=== PATIENT | female | born 1955 | race Asian ===

== ENCOUNTER 2016-05-03 12:51 | Outpatient (CLI) | payer MEDICARE | END 2016-05-03 12:52 | disposition home or self-care (01) | DX: E11.9 Type 2 diabetes mellitus without complications (principal); M17.11 Unilateral primary osteoarthritis, right knee ==

== ENCOUNTER 2016-06-29 06:06 | Inpatient (IN) | payer MEDICARE ==
[2016-06-29] MEDS ORDERED: ceFAZolin 2 GM/50 ML 50 ML IV ONE (06:29)
[2016-06-29] MEDS ORDERED: LACTATED RINGERS 1,000 ML IV ONE (06:49)
[2016-06-29] MEDS ORDERED: KETOROLAC 30 MG/ML VIAL IM ONE (07:42)
[2016-06-29] MEDS ORDERED: ROPIVACAINE 0.5% PF 20 ML AMPULE SUBQ ONE (07:43)
[2016-06-29] MEDS ORDERED: MORPHINE PF 5 MG/10 ML AMP SUBQ ONE (07:44)
[2016-06-29] MEDS ORDERED: MORPHINE PF 5 MG/10 ML AMP EP ONE (08:49)
[2016-06-29] MEDS ORDERED: PHENYLEPHRINE 10 MG/ML VIAL IV ONE (08:49)
[2016-06-29] MEDS ORDERED: MIDAZOLAM 2 MG/2 ML VIAL IVP ONE (08:49)
[2016-06-29] MEDS ORDERED: METOCLOPRAMIDE 10 MG/2 ML VIAL IVP ONE (08:49)
[2016-06-29] MEDS ORDERED: ACETAMINOPHEN 1,000 MG/100 ML VIAL IV ONE (08:49)
[2016-06-29] MEDS ORDERED: METOPROLOL 5 MG/5 ML VIAL IVP ONE (08:49)
[2016-06-29] MEDS ORDERED: TRANEXAMIC ACID 1,000 MG/10 ML VIAL IV ONE (08:49)
[2016-06-29] MEDS ORDERED: LIDOCAINE-MPF 2% 5 ML VIAL IM ONE (08:49)
[2016-06-29] MEDS ORDERED: KETOROLAC 30 MG/ML VIAL IVP ONE (08:49)
[2016-06-29] MEDS ORDERED: PROPOFOL 200 MG/20 ML VIAL IVP ONE (08:49)
[2016-06-29] MEDS ORDERED: ONDANSETRON 4 MG/2 ML VIAL IVP ONE (08:49)
[2016-06-29] MEDS ORDERED: BISACODYL 10 MG SUPP PR PRN (10:05)
[2016-06-29] MEDS ORDERED: ONDANSETRON 4 MG/2 ML VIAL IVP PRN (10:05)
[2016-06-29] MEDS ORDERED: DEXTROSE 50% ABBOJECT 25 GM/50 ML SYRINGE IVP PRN (10:05)
[2016-06-29] MEDS ORDERED: DEXTROSE 5% 1,000 ML IV PRN (10:05)
[2016-06-29] MEDS ORDERED: DEXTROSE GEL 37.5 GM TUBE PO PRN (10:05)
[2016-06-29] MEDS ORDERED: GLUCAGON 1 MG/ML VIAL SUBQ PRN (10:05)
[2016-06-29] MEDS ORDERED: DOCUSATE SODIUM 100 MG CAPSULE PO PRN (10:05)
[2016-06-29] MEDS ORDERED: SODIUM CHLORIDE FLUSH 0.9% 10 ML SYRINGE IVP PRN (10:05)
[2016-06-29] MEDS ORDERED: PROCHLORPERAZINE 10 MG/2 ML VIAL IVP PRN (10:05)
[2016-06-29] MEDS ORDERED: HYDROmorphone 1 MG/ML SYRINGE ONE (10:48)
[2016-06-29] MEDS: SODIUM CHLORIDE 0.45% 1,000 ML IV SCH ×2 (12:50→22:04)
[2016-06-29] MEDS: SODIUM CHLORIDE FLUSH 0.9% 10 ML SYRINGE IVP SCH ×2 (12:50→21:57)
[2016-06-29] MEDS: ACETAMINOPHEN 325 MG TABLET PO PRN ×2 (13:54→21:48)
[2016-06-29] MEDS ORDERED: metFORMIN 500 MG TABLET PO SCH (17:00)
[2016-06-29] MEDS: ceFAZolin 2 GM/50 ML 50 ML IV SCH (18:02)
[2016-06-29] MEDS: ATORVASTATIN 10 MG TABLET PO SCH (22:02)
[2016-06-29] MEDS: METOPROLOL TARTRATE 50 MG TABLET PO SCH (22:02)
[2016-06-29] MEDS: FLUOCINONIDE 0.05% CREAM 15 GM TUBE TOP SCH (23:25)
[2016-06-30] MEDS: ACETAMINOPHEN 325 MG TABLET PO PRN ×2 (02:50→08:08)
[2016-06-30] MEDS: ceFAZolin 2 GM/50 ML 50 ML IV SCH (02:50)
[2016-06-30] MEDS: SODIUM CHLORIDE FLUSH 0.9% 10 ML SYRINGE IVP SCH ×3 (05:22→20:02)
[2016-06-30] MEDS: ASPIRIN 325 MG TABLET PO SCH (08:08)
[2016-06-30] MEDS: METOPROLOL TARTRATE 50 MG TABLET PO SCH ×2 (08:08→20:26)
[2016-06-30] MEDS: NIFEdipine ER 30 MG TABLET PO SCH (08:09)
[2016-06-30] MEDS: SODIUM CHLORIDE 0.45% 1,000 ML IV SCH ×2 (08:12→18:42)
[2016-06-30] MEDS: HYDROcod/ACETAM 7.5 MG/325 MG TABLET PO PRN ×3 (11:27→20:52)
[2016-06-30] MEDS: metFORMIN 500 MG TABLET PO SCH ×2 (11:48→20:22)
[2016-06-30] MEDS: methIMAzole 5 MG TABLET PO SCH (11:48)
[2016-06-30] MEDS: FLUOCINONIDE 0.05% CREAM 15 GM TUBE TOP SCH ×2 (11:48→20:27)
[2016-06-30] MEDS: ISONIAZID 100 MG TABLET PO SCH (11:53)
[2016-06-30] MEDS: ATORVASTATIN 10 MG TABLET PO SCH (20:26)
[2016-07-01] MEDS: HYDROmorphone 1 MG/ML SYRINGE IVP PRN (00:28)
[2016-07-01] MEDS: HYDROcod/ACETAM 7.5 MG/325 MG TABLET PO PRN ×4 (03:54→21:12)
[2016-07-01] MEDS: SODIUM CHLORIDE 0.45% 1,000 ML IV SCH ×3 (04:28→22:23)
[2016-07-01] MEDS: SODIUM CHLORIDE FLUSH 0.9% 10 ML SYRINGE IVP SCH ×4 (06:09→21:15)
[2016-07-01] MEDS: metFORMIN 500 MG TABLET PO SCH ×2 (08:54→21:14)
[2016-07-01] MEDS: methIMAzole 5 MG TABLET PO SCH (08:55)
[2016-07-01] MEDS: ASPIRIN 325 MG TABLET PO SCH (08:55)
[2016-07-01] MEDS: ISONIAZID 100 MG TABLET PO SCH (08:56)
[2016-07-01] MEDS: METOPROLOL TARTRATE 50 MG TABLET PO SCH ×2 (08:56→21:06)
[2016-07-01] MEDS: NIFEdipine ER 30 MG TABLET PO SCH (08:57)
[2016-07-01] MEDS: POLYETHYLENE GLYCOL 3350 17 GM PACKET PO SCH (13:07)
[2016-07-01] MEDS: SENNA 8.6 MG TABLET PO SCH (13:07)
[2016-07-01] MEDS: FLUOCINONIDE 0.05% CREAM 15 GM TUBE TOP SCH ×2 (13:09→21:15)
[2016-07-01] MEDS ORDERED: POLYETHYLENE GLYCOL 3350 17 GM PACKET PO SCH (17:00)
[2016-07-01] MEDS: ACETAMINOPHEN 325 MG TABLET PO PRN (17:40)
[2016-07-01] MEDS: ATORVASTATIN 10 MG TABLET PO SCH (21:06)
[2016-07-02] MEDS: HYDROcod/ACETAM 7.5 MG/325 MG TABLET PO PRN ×2 (01:16→07:54)
[2016-07-02] MEDS: HYDROmorphone 1 MG/ML SYRINGE IVP PRN (05:38)
[2016-07-02] MEDS: SODIUM CHLORIDE FLUSH 0.9% 10 ML SYRINGE IVP SCH (05:39)
[2016-07-02] MEDS: METOPROLOL TARTRATE 50 MG TABLET PO SCH (07:47)
[2016-07-02] MEDS: ASPIRIN 325 MG TABLET PO SCH (07:48)
[2016-07-02] MEDS: ISONIAZID 100 MG TABLET PO SCH (07:48)
[2016-07-02] MEDS: SENNA 8.6 MG TABLET PO SCH (07:48)
[2016-07-02] MEDS: methIMAzole 5 MG TABLET PO SCH (07:48)
[2016-07-02] MEDS: NIFEdipine ER 30 MG TABLET PO SCH (07:48)
[2016-07-02] MEDS: POLYETHYLENE GLYCOL 3350 17 GM PACKET PO SCH (07:49)
[2016-07-02] MEDS: metFORMIN 500 MG TABLET PO SCH (07:49)
[2016-07-02] MEDS: SODIUM CHLORIDE 0.45% 1,000 ML IV SCH (07:50)
[2016-07-02] MEDS ORDERED: DOCUSATE SODIUM 250 MG CAPSULE PO ONE (08:30)
[2016-07-02] MEDS: FLUOCINONIDE 0.05% CREAM 15 GM TUBE TOP SCH (08:59)
== END 2016-07-02 09:25 | disposition home or self-care (01) | DRG 470 ==
PROC: 0SRC0J9 Replacement of Right Knee Joint with Synthetic Substitute, Cemented, Open Approach (ICD-10-PCS; principal; 2016-06-29 07:30)
DX: M17.11 Unilateral primary osteoarthritis, right knee (principal); I10 Essential (primary) hypertension; E11.9 Type 2 diabetes mellitus without complications; E05.00 Thyrotoxicosis with diffuse goiter without thyrotoxic crisis or storm; E78.00 Pure hypercholesterolemia, unspecified; L40.9 Psoriasis, unspecified; F17.210 Nicotine dependence, cigarettes, uncomplicated; Z96.652 Presence of left artificial knee joint; Z85.3 Personal history of malignant neoplasm of breast; Z87.440 Personal history of urinary (tract) infections

== ENCOUNTER 2016-09-20 11:48 | Outpatient (CLI) | payer MEDICARE ==
--- NOTE | 2016-09-21 16:49 | Mammography Report ---
DIGITAL SCREENING MAMMOGRAM: 09/20/2016 CLINICAL INDICATION: A 60-year-old with personal history of benign right breast biopsy for screening . COMPARISON: 09/2015, 09/2014, 07/2013, 07/2012, 07/2011, 07/2010, 07/2009, 10/2008, 04/2008, 03/2008 . TECHNIQUE: Routine CC and MLO projections were obtained of the breasts. The breasts again demonstrate heterogeneously dense fibroglandular parenchyma bilaterally. Coarse an d punctate, typically benign calcifications are present. Post-biopsy changes in the right breast are stable. No suspicious masses, clustered microcalcifications, or regions of architectural distortion are identified. IMPRESSION: BENIGN FINDINGS. RECOMMENDATION: ROUTINE ANNUAL SCREENING UNLESS OTHERWISE CLINICALLY INDICATED. BIRADS CATEGORY: 2, BENIGN FINDINGS. STANDARD QUALIFYING STATEMENTS 1. This examination was reviewed with the aid of Computed-Aided Detection (CAD). 2. A negative or benign imaging report should not delay biopsy if clinically suspicious findings are present. Consider surgical consultation if warranted. More than 5% of cancers are not identified b y imaging. 3. Dense breasts may obscure an underlying neoplasm. JOB #: [id number] EXT JOB #:[id number]
== END 2016-09-20 11:49 | disposition home or self-care (01) ==
LOC: DI.N 11:48
PROVIDERS: ATTEND Physician Assistant Medical
DX: Z12.31 Encounter for screening mammogram for malignant neoplasm of breast (principal)
CPT/HCPCS: 77067

== ENCOUNTER 2017-04-27 15:13 | Emergency (ER) | payer MEDICARE ==
[2017-04-27] MEDS ORDERED: LABETALOL 20 MG/4 ML SYRINGE IVP STA (15:36)
--- NOTE | 2017-04-27 15:39 | ED Physician Documentation ---
History of Present Illness - Stated complaint Stated Complaint: HIGH BP - Chief complaint Chief Complaint: General - History obtained from History obtained from: Patient, Family () - History of Present Illness Timing: Last night (She has a history of hypertension which is usually well controlled for which she takes metoprolol. Starting last night her whole body feels heavy and she is having some anxiety and choking sensation as well as throbbing in her head and her blood pressure has been uncontrolled.) Review of Systems Ten Systems: 10 systems reviewed and negative Constitutional: denies: Fever, Chills Throat: denies: Dental pain / toothache, Sore throat Cardiac: reports: Chest pain / pressure. denies: Palpitations, Pedal edema, Calf pain Respiratory: reports: Dyspnea. 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 - Present Medications Home Medications: Ambulatory Orders Medication Instructions Recorded Confirmed Aspirin [Adult Low Dose Aspirin EC] 81 mg PO DAILY 07/14/15 04/27/17 Metoprolol Tartrate 50 mg PO BID 07/14/15 04/27/17 Simvastatin 40 mg PO QPM 07/14/15 04/27/17 methIMAzole [Methimazole] 5 mg PO DAILY 07/14/15 04/27/17 Bisacodyl Supp [Dulcolax Supp] 10 mg ID Q12H PRN #7 supp 07/02/16 04/27/17 HYDROcodone/ACET 7.5/325 [[place] 1 tab PO Q4H PRN #30 tablet 07/02/16 04/27/17 7.5/325] Lisinopril [Prinivil] 10 mg PO DAILY #30 tablet 04/27/17 Simvastatin 40 mg PO DAILY 04/27/17 04/27/17 metFORMIN [Glucophage] 1,000 mg PO BID 04/27/17 04/27/17 - Allergies Allergies/Adverse Reactions: Allergies Allergy/AdvReac Type Severity Reaction Status Date / Time No Known Drug Allergies Allergy Verified 07/14/15 12:30 - Social History Does the pt smoke?: No Smoking Status: Never smoker PD ED PE NORMAL - Vitals Vital signs reviewed: Yes - General General: Alert and oriented X 3 (She is very anxious) - HEENT HEENT: PERRL, EOMI - Neck Neck: Supple, no meningeal sign, No bony TTP - Cardiac Cardiac: RRR, No murmur - Respiratory Respiratory: No respiratory distress, Clear bilaterally - Abdomen Abdomen: Soft, Non tender - Derm Derm: Normal color, Warm and dry, No rash - Extremities Extremities: No edema, No calf tenderness / cord - Neuro Neuro: Alert and oriented X 3, Normal speech Results - Vitals Vitals: Vital Signs - 24 hr 04/27/17 15:22 Heart Rate 105 H Respiratory 22 Rate Blood Pressure 226/99 H O2 Saturation 98 Oxygen O2 Source Room air - EKG (time done) 1525 Rate: Rate (enter#) (96) Rhythm: NSR [place]: Normal Intervals: Normal ID QRS: Normal Ischemia: Normal ST segments Computer interpretation: Agree with computer - Labs Labs: Laboratory Tests 04/27/17 04/27/17 04/27/17 15:43 15:43 15:43 WBC 10.8 RBC 5.43 H Hgb 14.6 Hct 44.4 MCV 81.9 MCH 26.9 L MCHC 32.8 RDW 14.0 Plt Count 318 MPV 7.9 Neut # 6.2 Lymph # 3.6 H [place] # 0.7 Eos # 0.2 Baso # 0.1 Absolute Nucleated RBC 0.00 Nucleated RBC % 0.0 Sodium 134 L Potassium 3.7 Chloride 94 L Carbon Dioxide 24 Anion Gap 16.0 H BUN 12 Creatinine 0.9 Estimated GFR (MDRD) 64 L Glucose 183 H Calcium 10.1 Total Bilirubin 0.3 AST 37 ALT 49 Alkaline Phosphatase 69 Troponin I < 0.04 Total Protein 8.6 H Albumin 5.1 Globulin 3.5 Albumin/Globulin Ratio 1.5 Lipase 71 H - Rads (name of study) CT Head Radiology: EMP read contemporaneously (NAD) PD MEDICAL DECISION MAKING - ED course ED course: She presents with headache and really pretty significant hypertension, but she is also very panicky. She was reassured and treated with IV labetalol, blood pressure came down to about 160/80 and the remainder of her workup was negative. Departure - Departure Disposition: 01 Home, Self Care Clinical Impression: Hypertension Qualifiers: Hypertension type: essential hypertension Qualified Code(s): I10 - Essential ( primary) hypertension Headache Qualifiers: Headache type: tension-type Headache chronicity pattern: acute headache Intractability: not intractable Qualified Code(s): G44.209 - Tension-type headache, unspecified, not intractable Condition: Good Record reviewed to determine appropriate education?: Yes Instructions: ED Headache Tension Prescriptions: Lisinopril [Prinivil] 10 mg PO DAILY #30 tablet Comments: Return if worse, follow-up with your doctor Tuesday or Tuesday for blood pressure check and post emergency department check.
[2017-04-27 15:49] LABS: BASOPHILS # (AUTO) 0.1 10^3/uL (0.0-0.1); BASOPHILS % (AUTO) 0.9 %; EOSINOPHILS # (AUTO) 0.2 10^3/uL (0.0-0.7); HGB - HEMOGLOBIN 14.6 g/dL (12.0-16.0); LYMPHOCYTES # (AUTO) 3.6 10^3/uL (1.5-3.5); LYMPHOCYTES % (AUTO) 33.7 %; MEAN CORPUSCULAR HEMOGLOBIN 26.9 pg (27.0-31.0); MEAN CORPUSCULAR HGB CONC 32.8 g/dL (32.0-36.0); MEAN CORPUSCULAR VOLUME 81.9 fL (81.0-99.0); MEAN PLATELET VOLUME 7.9 fL (7.9-10.8); MONOCYTES # (AUTO) 0.7 10^3/uL (0.0-1.0); MONOCYTES % (AUTO) 6.1 %; NEUTROPHILS # (AUTO) 6.2 10^3/uL (1.5-6.6); NEUTROPHILS % (AUTO) 57.3 %; PLT - PLATELET COUNT 318 10^3/uL (130-450); RED BLOOD COUNT 5.43 10^6/uL (4.20-5.40); WHITE BLOOD COUNT 10.8 x10^3/uL (4.8-10.8)
[2017-04-27 15:59] LABS: ALBUMIN 5.1 g/dL (3.2-5.5); ALBUMIN/GLOBULIN RATIO 1.5 (1.0-2.2); BILIRUBIN,TOTAL 0.3 mg/dL (0.2-1.0); CALCIUM 10.1 mg/dL (8.5-10.3); CREATININE 0.9 mg/dL (0.4-1.0); TOTAL PROTEIN 8.6 g/dL (6.7-8.2)
--- NOTE | 2017-04-27 16:50 | CT Report ---
EXAM: CT HEAD EXAM DATE: 04/27/2017 04:28 PM. CLINICAL HISTORY: HEADACHE. COMPARISON: 10/09/2008. TECHNIQUE: Multiaxial CT images were obtained from the foramen magnum to the vertex. Reformats: Coron al. IV contrast: None. In accordance with CT protocol optimization, one or more of the following dose reduction techniques w ere utilized for this exam: automated exposure control, adjustment of mA and/or KV based on patient s ize, or use of iterative reconstructive technique. FINDINGS: Parenchyma: There is an old infarct with encephalomalacia in the left frontal parietal lobe. No midli ne shift or mass effect. Negative for intracranial hemorrhage. Extraaxial Spaces: Normal for age. No subdural or epidural collections identified. Ventricles: Normal in size and position. Sinuses and Orbits: Imaged paranasal sinuses, orbits, and mastoids show no significant abnormality. Bones: No acute fracture. There is an old right lamina papyracea defect. Other: None. IMPRESSION: 1. Negative for intracranial hemorrhage, mass effect or acute process. 2. 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 [facility] Referring Provider Line: [phone] SITE ID: [id number]
[2017-04-27 17:26] VITALS: BP 147/86
== END 2017-04-27 17:26 | disposition home or self-care (01) ==
LOC: ED 15:13
DX: I10 Essential (primary) hypertension (principal); G44.209 Tension-type headache, unspecified, not intractable; F41.0 Panic disorder [episodic paroxysmal anxiety]; E11.9 Type 2 diabetes mellitus without complications; Z79.84 Long term (current) use of oral hypoglycemic drugs; Z79.82 Long term (current) use of aspirin
CPT/HCPCS: 36415; 70450; 80053; 83690; 84484; 85025; 93005; 96374; 99283

== ENCOUNTER 2017-08-15 16:07 | Outpatient (CLI) | payer MEDICARE ==
--- NOTE | 2017-08-15 17:20 | Ultrasound Report ---
EXAM: RIGHT LOWER EXTREMITY VENOUS ULTRASOUND EXAM DATE: 08/15/2017 04:37 PM. CLINICAL HISTORY: Right LEG SWELLING. COMPARISON: None. TECHNIQUE: Real-time sonographic vascular imaging was performed by the perpetual inventory clerk through the lower extremity utilizing both color-flow and Doppler spectral analysis. Multiple jewelry sales representative static masoud ges were saved for review. FINDINGS: Common Femoral Vein (CFV): Normal. CFV-GSV Junction: Normal. Profunda Femoral Vein (PFV): Normal. Femoral Vein (FV) Prox: Normal. Femoral Vein (FV) Mid: Normal. Femoral Vein (FV) Dist: Normal. Popliteal Vein: Normal. Posterior Tibial Veins: Normal. Peroneal Veins: Normal. IMPRESSION: No evidence for deep venous thrombosis. [facility] Referring Provider Line: [phone] SITE ID: [id number]
== END 2017-08-15 16:08 | disposition home or self-care (01) ==
LOC: DI 16:07
PROVIDERS: ATTEND Orthopaedic Surgery
DX: R60.0 Localized edema (principal)

== ENCOUNTER 2017-09-23 15:49 | Outpatient (CLI) | payer MEDICARE ==
--- NOTE | 2017-09-26 15:49 | Mammography Report ---
Procedure Date: 09/23/2017 Accession Number: [id number] / [id number] Procedure: MGN - Screening Mammo Dig Bilat CPT Code: FULL RESULT: EXAM: Screening Mammo Dig Bilat DATE: 09/23/2017 4:15 PM CLINICAL HISTORY: Personal history of benign right breast biopsy for routine screening TECHNIQUE: Bilateral CC and MLO views were obtained. COMPARISON: 09/20/2016, 09/29/2015, 09/09/2014, 07/30/2013, 07/17/2012, 07/12/11 FINDINGS: The breast tissue is heterogeneously dense. Postsurgical changes right breast are stable. No suspicious masses, clustered microcalcifications, or new regions of architectural distortion are identified. IMPRESSION: Negative examination RECOMMENDATION: Routine annual screening unless otherwise clinically indicated. BIRADS CATEGORY 1: Negative STANDARD QUALIFYING STATEMENTS: 1. This examination was reviewed with the aid of Computer-Aided Detection (CAD). 2. A negative or benign imaging report should not delay biopsy if clinically suspicious findings are present. Consider surgical consultation if warrented. More than 5% of cancers are not identified by imaging. 3. Dense breasts may obscure an underlying neoplasm.
== END 2017-09-23 15:50 | disposition home or self-care (01) ==
LOC: DI.N 15:49
PROVIDERS: ATTEND Physician Assistant Medical
DX: Z12.31 Encounter for screening mammogram for malignant neoplasm of breast (principal)
CPT/HCPCS: 77067

== ENCOUNTER 2018-12-27 09:49 | Outpatient (CLI) | payer MEDICARE ==
--- NOTE | 2018-12-27 13:27 | Mammography Report ---
Reason: SCREENING MAMMO Procedure Date: 12/27/2018 Accession Number: [id number] / [id number] Procedure: MGN - Screening Mammo Dig Bilat CPT Code: FULL RESULT: EXAM: Screening Mammo Dig Bilat DATE: 12/27/2018 10:24 AM CLINICAL HISTORY: Routine screening. Nulliparous patient. Prior benign right breast biopsy. TECHNIQUE: (B) - Bilateral CC and MLO views were obtained. COMPARISON: 09/23/2017, 09/20/2016, 09/29/2015 and 09/09/2014 PARENCHYMAL PATTERN: (VD) - The breasts demonstrate extremely dense parenchyma bilaterally, limiting the sensitivity of mammography. FINDINGS: No significant interval change on the left.. There are no suspicious masses, calcifications, or areas of distortion. On the right post biopsy architectural distortion is stable. There are 4 punctate new calcifications associated with faint increased soft tissue density in the 12:00 position 8 cm from the nipple. No dominant mass or other new finding. IMPRESSION: Incomplete examination right breast. BI-RADS category 0. Negative left breast. RECOMMENDATION: (ADDMAM) - Recommend additional mammographic views. Right breast magnification views. BI-RADS CATEGORY: (0) - Incomplete Examination - need additional evaluation. STANDARD QUALIFYING STATEMENTS: 1. This examination was not reviewed with the aid of Computer-Aided Detection (CAD). 2. A negative or benign imaging report should not preclude biopsy if clinically suspicious findings are present. 3. Dense breasts may obscure an underlying neoplasm. 4. This examination was reviewed without the aid of 3D breast imaging (tomosynthesis).
== END 2018-12-27 09:50 | disposition home or self-care (01) ==
LOC: DI.N 09:49
DX: Z12.31 Encounter for screening mammogram for malignant neoplasm of breast (principal)
CPT/HCPCS: 77067

== ENCOUNTER 2019-01-17 08:16 | Outpatient (CLI) | payer MEDICARE ==
--- NOTE | 2019-01-17 09:11 | Mammography Report ---
Reason: ABNORMAL MAMMOGAM Procedure Date: 01/17/2019 Accession Number: [id number] / [id number] Procedure: JOSHUA - Diag Special Views Dig RT CPT Code: FULL RESULT: EXAM: Diag Special Views Dig RT DATE: 01/17/2019 8:56 AM CLINICAL HISTORY: Recall from recent screening for right breast finding. No reported personal history of breast cancer. Prior benign right breast biopsy. Family history breast cancer in sister at age 62. TECHNIQUE: (R) - Right CC and ML views were obtained. COMPARISON: 12/27/2018 through 07/28/2009 PARENCHYMAL PATTERN: (D) - The breasts demonstrate heterogeneously dense fibroglandular parenchyma bilaterally. FINDINGS: Right breast: Additional images confirm a 5 mm grouping containing 3 punctate calcifications in the 6:00 breast 7.5 cm from the nipple representing finding recalled from screening. The described associated possible asymmetry effaces with compression and is a stable finding when compared to studies dating back to at least 2016. There are no suspicious masses or areas of distortion. IMPRESSION: Probably Benign. BI-RADS category 3. 3 punctate calcifications posterior 6:00 breast. RECOMMENDATION: (6MOS) - Recommend 6 month follow-up exam. BI-RADS CATEGORY: (3) - Probably Benign. STANDARD QUALIFYING STATEMENTS: 1. This examination was not reviewed with the aid of Computer-Aided Detection (CAD). 2. A negative or benign imaging report should not preclude biopsy if clinically suspicious findings are present. 3. Dense breasts may obscure an underlying neoplasm. 4. This examination was reviewed with the aid of 3D breast imaging (tomosynthesis).
== END 2019-01-17 08:17 | disposition home or self-care (01) ==
LOC: DI 08:16
PROVIDERS: ATTEND Physician Assistant Medical
DX: R92.1 Mammographic calcification found on diagnostic imaging of breast (principal); Z80.3 Family history of malignant neoplasm of breast

== ENCOUNTER 2019-05-07 08:00 | Outpatient (CLI) | payer MEDICARE ==
[2019-05-07 12:29] LABS: CALCIUM 9.7 mg/dL (8.5-10.3); CREATININE 0.9 mg/dL (0.4-1.0)
[2019-05-07 12:45] LABS: HEMOGLOBIN A1C 0.81 g/dL; HEMOGLOBIN A1C % 7.4 % (4.6-6.2)
== END 2019-05-07 23:59 | disposition home or self-care (01) ==
LOC: LAB.WCP 08:00
PROVIDERS: ATTEND Physician Assistant Medical
DX: E11.9 Type 2 diabetes mellitus without complications (principal)
CPT/HCPCS: 36415; 80048; 83036

== ENCOUNTER 2019-08-28 08:00 | Outpatient (CLI) | payer MEDICARE ==
[2019-08-28 14:11] LABS: ALBUMIN 4.7 g/dL (3.2-5.5); ALBUMIN/GLOBULIN RATIO 1.5 (1.0-2.2); ALKALINE PHOSPHATASE 58 IU/L (42-121); ALT ALANINE AMINOTRANSFERASE 34 IU/L (10-60); AST ASPARTATE AMINOTRANSFERASE 35 IU/L (10-42); BILIRUBIN,TOTAL 0.6 mg/dL (0.2-1.0); BUN - BLOOD UREA NITROGEN 16 mg/dL (6-20); CALCIUM 9.9 mg/dL (8.5-10.3); CARBON DIOXIDE - CO2 27 mmol/L (21-32); CHLORIDE 93 mmol/L (101-111); CHOLESTEROL 158 mg/dL; CREATININE 0.9 mg/dL (0.4-1.0); GLUCOSE 126 mg/dL (70-100); HDL CHOLESTEROL 53 mg/dL; LDL CHOLESTEROL,CALCULATED 83 mg/dL; LDL/HDL RATIO 1.6 (<4.4); SODIUM 132 mmol/L (135-145); TOTAL PROTEIN 7.9 g/dL (6.7-8.2); VLDL CHOLESTEROL 22 mg/dL
[2019-08-28 14:22] LABS: HB2 TOTAL 14.7 g/dL; HEMOGLOBIN A1C 0.72 g/dL; HEMOGLOBIN A1C % 6.6 % (4.6-6.2)
[2019-08-28 14:52] LABS: CREATININE,URINE 49.7 mg/dL; MICROALBUM/CREATININE RATIO,UR 2183.1 ug/mg (<30.0); MICROALBUMIN,URINE 108.5 mg/dL (0-300.0)
== END 2019-08-28 23:59 | disposition home or self-care (01) ==
LOC: LAB.WCP 08:00
PROVIDERS: ATTEND Physician Assistant Medical
DX: E11.9 Type 2 diabetes mellitus without complications (principal)
CPT/HCPCS: 36415; 80053; 80061; 82043; 82570; 83036; 83721

== ENCOUNTER 2020-01-10 10:30 | Outpatient (CLI) | payer MEDICARE ==
--- NOTE | 2020-01-14 08:30 | Mammography Report ---
BILATERAL DIGITAL DIAGNOSTIC MAMMOGRAM 3D/2D: 01/10/2020 CLINICAL: Patient returns for a 6 month follow up of microcalcifications in the right breast. Routine screening of Left Breast. Comparison is made to exams dated: 12/27/2018 mammogram, 09/23/2017 mammogram, 09/20/2016 mammogram, mammogram, 09/09/2014 mammogram, and 07/30/2013 mammogram - [facility]. The t issue of both breasts is heterogeneously dense. This may lower the sensitivity of mammography. There are grouped coarse, dystrophic, round calcifications in the right breast at 6 o'clock posterior depth. These have minimally increased in number. No other significant masses, calcifications, or other findings are seen in either breast. IMPRESSION: BENIGN The grouped calcifications in the right breast most likely are fibrocystic change or a degenerating f ibroadenoma and appear benign. There is no mammographic evidence of malignancy. Return to annual mammogram screening schedule is rec ommended. Findings and recommendations were conveyed to the patient at time of exam. This exam was interpreted at Station ID: [id number]. NOTE: For mammograms, a report in lay terms will be sent to the patient. Approximately 15% of breast malignancies will not be visualized mammographically. In the management of a palpable breast mass, a negative mammogram must not discourage biopsy of a clinically suspicious lesion. Electronically Signed By: Drea rodriguez/:01/10/2020 12:00:55 ACR BI-RADS Category 2: Benign Finding(s) 3342F PARENCHYMAL PATTERN: (D) - The breast(s) demonstrate(s) heterogeneously dense fibroglandular paranthony rodriguez. BI-RADS CATEGORY: (2) - 2 RECOMMENDATION: (ANNUAL) - Recommend routine annual screening mammography. [id number] return to screening LATERALITY: (B)
== END 2020-01-10 10:31 | disposition home or self-care (01) ==
LOC: DI 10:30
PROVIDERS: ATTEND Physician Assistant Medical
DX: R92.8 Other abnormal and inconclusive findings on diagnostic imaging of breast (principal)
CPT/HCPCS: 77066

== ENCOUNTER 2020-10-23 09:18 | Emergency (ER) | payer MEDICARE ==
[2020-10-23] MEDS ORDERED: SODIUM CHLORIDE 0.9% 1,000 ML IV STA (10:47)
--- NOTE | 2020-10-23 10:49 | ED Physician Documentation ---
PD HPI SYNCOPE - Stated complaint Stated Complaint: FALL, HEAF SHOULDER & KNEE INJURY - Chief complaint Chief Complaint: Trauma Hd/Nk - History obtained from History obtained from: Patient, Family - History of Present Illness Witnessed: Unwitnessed Timing - onset: Yesterday Duration: Seconds Preceding symptoms: Vision changes, Light headed Contributing factors: Just stood up Injury occurred: Fell, Head injury, Neck injury Similar symptoms before: Has not had sx before Recently seen: Not recently seen - Additional information Additional information: 64-year-old female was in her usual state of health yesterday and states that she over the past 2 weeks has had some lightheadedness. 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 She is injured her right face has a black and blue to the right eye she has some pain in her neck her right shoulder and her right knee where she has a prior total knee replacement. She has not vomited. She has history of diabetes and drinks a lot of water. Review of Systems Constitutional: denies: Fever Eyes: denies: Decreased vision Ears: denies: Ear pain Nose: denies: Congestion Throat: denies: Sore throat Cardiac: denies: Palpitations Respiratory: denies: Dyspnea, Cough GI: denies: Abdominal Pain, Nausea, Vomiting : denies: Dysuria, Frequency PD PAST MEDICAL HISTORY - Past Medical History Cardiovascular: Hypertension, High cholesterol Respiratory: None, Shortness of breath Endocrine/Autoimmune: Type 2 diabetes GI: Other : Other HEENT: None Psych: None Musculoskeletal: Osteoarthritis, Osteoporosis Derm: Eczema, Psoriasis - Past Surgical History 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 - Present Medications Home Medications: Ambulatory Orders Medication Instructions Recorded Confirmed Aspirin [Adult Low Dose Aspirin EC] 81 mg PO DAILY 07/14/15 04/27/17 Metoprolol Tartrate 50 mg PO BID 07/14/15 04/27/17 Simvastatin 40 mg PO QPM 07/14/15 04/27/17 methIMAzole [Methimazole] 5 mg PO DAILY 07/14/15 04/27/17 Bisacodyl Supp [Dulcolax Supp] 10 mg NC Q12H PRN #7 supp 07/02/16 04/27/17 HYDROcodone/ACET 7.5/325 [[place] 1 tab PO Q4H PRN #30 tablet 07/02/16 04/27/17 7.5/325] Simvastatin 40 mg PO DAILY 04/27/17 04/27/17 lisinopriL [Prinivil] 10 mg PO DAILY #30 tablet 04/27/17 metFORMIN [Glucophage] 1,000 mg PO BID 04/27/17 04/27/17 HYDROcod/ACETAM 5/325 [[place] 5/325] 1 - 2 tablet PO Q6H PRN #14 tablet 10/23/20 - Allergies Allergies/Adverse Reactions: Allergies Allergy/AdvReac Type Severity Reaction Status Date / Time No Known Drug Allergies Allergy Verified 07/14/15 12:30 - Social History Does the pt smoke?: No Smoking Status: Never smoker PD ED PE NORMAL - Vitals Vital signs reviewed: Yes (Hypertensive mild) - General General: Alert and oriented X 3, Well developed/nourished, Other (The patient is anxious she has a black and blue to the right eye and she seems to be answering questions appropriately.) - HEENT HEENT: PERRL, EOMI, Other (Ecchymosis to the right periorbital tissues without evidence of hyphema or injury to the eye itself.) - Neck Neck: Supple, no meningeal sign, Other (Midline bony tenderness to the mid cervical spine.) - Cardiac Cardiac: RRR, No murmur - Respiratory Respiratory: No respiratory distress, Clear bilaterally - Abdomen Abdomen: Normal bowel sounds, Soft, Non tender, Non distended, No organomegaly - Back Back: No CVA TTP, No spinal TTP - Derm Derm: Normal color, Warm and dry, No rash - Extremities Extremities: No deformity, No edema - Neuro Neuro: Alert and oriented X 3, electrical engineering technician 2-12 intact, No motor deficit, No sensory deficit, Normal speech Eye Opening: Spontaneous Motor: Obeys Commands Verbal: Oriented GCS Score: 15 - Psych Psych: Other (Mood is anxious) Results - Vitals Vitals: Vital Signs - 24 hr 10/23/20 10/23/20 10/23/20 09:26 11:16 13:00 Temperature 36.6 C 36.6 C 36.8 C Heart Rate 68 69 67 Respiratory 16 16 20 Rate Blood Pressure 139/77 H 189/83 H 189/99 H O2 Saturation 100 98 98 Oxygen O2 Source Room air - EKG (time done) 1213 Rate: Rate (enter#) (75) Rhythm: NSR Compare to prior EKG: Unchanged from prior EKG (SPT 04-27-2017 no sig change) Computer interpretation: Agree with computer - Labs Labs: Laboratory Tests 10/23/20 10/23/20 10/23/20 11:03 11:03 11:03 WBC 10.4 RBC 5.34 Hgb 14.6 Hct 42.2 MCV 79.0 L MCH 27.3 MCHC 34.6 RDW 11.9 L Plt Count 375 MPV 8.6 Neut # (Auto) 6.5 Lymph # (Auto) 2.8 [place] # (Auto) 0.8 Eos # (Auto) 0.2 Baso # (Auto) 0.1 Absolute Nucleated RBC 0.00 Nucleated RBC % 0.0 Sodium 124 L Potassium 4.0 Chloride 85 L Carbon Dioxide 24 Anion Gap 15.0 H BUN 11 Creatinine 0.8 Estimated GFR (MDRD) 72 L Glucose 73 Calcium 10.0 Total Bilirubin 0.7 AST 37 ALT 43 Alkaline Phosphatase 71 Troponin I High Sens 6.2 Total Protein 7.7 Albumin 4.5 Globulin 3.2 Albumin/Globulin Ratio 1.4 Lipase 82 H Urine Color Urine Clarity Urine pH Ur Specific [place] Urine Protein Urine Glucose (UA) Urine Ketones Urine Occult Blood Urine Nitrite Urine Bilirubin Urine Urobilinogen Ur Leukocyte Esterase Urine RBC Urine WBC Ur Squamous Epith Cells Urine Bacteria Ur Microscopic Review Urine Culture Comments 10/23/20 11:41 WBC RBC Hgb Hct MCV MCH MCHC RDW Plt Count MPV Neut # (Auto) Lymph # (Auto) [place] # (Auto) Eos # (Auto) Baso # (Auto) Absolute Nucleated RBC Nucleated RBC % Sodium Potassium Chloride Carbon Dioxide Anion Gap BUN Creatinine Estimated GFR (MDRD) Glucose Calcium Total Bilirubin AST ALT Alkaline Phosphatase Troponin I High Sens Total Protein Albumin Globulin Albumin/Globulin Ratio Lipase Urine Color YELLOW Urine Clarity CLEAR Urine pH 5.5 Ur Specific [place] 1.010 Urine Protein 100 H Urine Glucose (UA) 100 H Urine Ketones NEGATIVE Urine Occult Blood NEGATIVE Urine Nitrite NEGATIVE Urine Bilirubin NEGATIVE Urine Urobilinogen 0.2 (NORMAL) Ur Leukocyte Esterase NEGATIVE Urine RBC None Seen Urine WBC 0-3 Ur Squamous Epith Cells FEW Squamous Urine Bacteria Rare Ur Microscopic Review INDICATED Urine Culture Comments NOT INDICATED - Rads (name of study) shoulder Radiology: Prelim report reviewed (Impression: 1. Acromioclavicular and glenohumeral joint osteoarthritis. Findings suggestive of rotator cuff tearing. Further assessment with nonemergent outpatient follow-up shoulder MRI is recommended), EMP read indepedently, See rad report Right knee Radiology: Prelim report reviewed (Impression: No acute fracture. No osseous lesion. If symptoms and or clinical suspicion for pathology continue, further assessment with repeat plain films, or advanced imaging is recommended to further assist), EMP read indepedently, See rad report CT head Radiology: Prelim report reviewed (Impression: 1. No acute intracranial disease process chronic left frontal parietal infarct is stable compared to prior exam.), EMP read indepedently, See rad report CT cervical spine Radiology: Prelim report reviewed (Impression: No fracture. No acute osseous lesion. If there is continued clinical concern for pathology, then MRI should be considered for further evaluation.), EMP read indepedently, See rad report Procedures - IVC sono (time) 1045 Bedside IVC sono: IVC measures (cm) (0.79), Dehydration (est 2+ liter deficit) PD MEDICAL DECISION MAKING - ED course Complexity details: reviewed old records, reviewed results, re-evaluated patient, considered differential, d/w patient, d/w family ED course: 64-year-old diabetic female had a syncopal episode yesterday when bending over in the kitchen and she has fallen and hurt herself with a bruise to her right eye and injury to her right shoulder and right knee. She also has pain in her neck. She is found to be dehydrated on interrogation the inferior vena cava and IV hydration is begun. A line is started blood is obtained and CT scan of the head and neck is undertaken as well as x-rays of the shoulder and knee. The patient rates her pain as 3-4 out of 10. She is not nauseated. Departure - Departure Disposition: 01 Home, Self Care Clinical Impression: Dehydration, Hyponatremia Concussion Qualifiers: Encounter type: initial encounter Loss of consciousness presence/duration: without LOC Qualified Code(s): S06.0X0A - Concussion without loss of consciousness, initial encounter Contusion of face Qualifiers: Encounter type: initial encounter Qualified Code(s): S00.83XA - Contusion of other part of head, initial encounter Cervical strain, acute Qualifiers: Encounter type: initial encounter Qualified Code(s): S16.1XXA - Strain of muscle, fascia and tendon at neck level, initial encounter Sprain of right shoulder Qualifiers: Encounter type: initial encounter Shoulder sprain type: unspecified sprain Qualified Code(s): S43.401A - Unspecified sprain of right shoulder joint, initial encounter Right knee sprain Qualifiers: Encounter type: initial encounter Involved ligament of knee: unspecified ligament Qualified Code(s): S83.91XA - Sprain of unspecified site of right knee, initial encounter Condition: Stable Instructions: ED Dehydration, ED Head Injury Closed, ED Sprain Strain Neck, ED Sprain Shoulder Follow-Up: Kathy Contreras PA-C [Primary Care Provider] - Prescriptions: HYDROcod/ACETAM 5/325 [[place] 5/325] 1 - 2 tablet PO Q6H PRN #14 tablet PRN Reason: Pain Discharge Date/Time: 10/23/20 13:27
[2020-10-23 11:14] LABS: BASOPHILS # (AUTO) 0.1 10^3/uL (0.0-0.1); BASOPHILS % (AUTO) 0.6 %; EOSINOPHILS # (AUTO) 0.2 10^3/uL (0.0-0.7); EOSINOPHILS % (AUTO) 1.8 %; HCT - HEMATOCRIT 42.2 % (37.0-47.0); HGB - HEMOGLOBIN 14.6 g/dL (12.0-16.0); LYMPHOCYTES # (AUTO) 2.8 10^3/uL (1.5-3.5); LYMPHOCYTES % (AUTO) 27.2 %; MEAN CORPUSCULAR HEMOGLOBIN 27.3 pg (27.0-31.0); MEAN CORPUSCULAR HGB CONC 34.6 g/dL (32.0-36.0); MEAN PLATELET VOLUME 8.6 fL (7.9-10.8); MONOCYTES # (AUTO) 0.8 10^3/uL (0.0-1.0); MONOCYTES % (AUTO) 7.2 %; NEUTROPHILS # (AUTO) 6.5 10^3/uL (1.5-6.6); PLT - PLATELET COUNT 375 10^3/uL (130-450); RED BLOOD COUNT 5.34 10^6/uL (4.20-5.40); RED CELL DISTRIBUTION WIDTH 11.9 % (12.0-15.0); WHITE BLOOD COUNT 10.4 x10^3/uL (4.8-10.8)
[2020-10-23] MEDS ORDERED: HYDROmorphone 1 MG/ML CARPUJECT IVP STA (11:24)
[2020-10-23] MEDS ORDERED: ONDANSETRON 4 MG/2 ML VIAL IVP STA (11:24)
--- NOTE | 2020-10-23 11:30 | XRAY Report ---
PROCEDURE: Knee 3 View RT INDICATIONS: fall knee pain TECHNIQUE: 4 views of the right knee(s) were acquired. COMPARISON: None. FINDINGS: Bones: No fractures or dislocations. No suspicious bony lesions. Knee arthroplasty hardware is pre sent. Hardware appears intact. Soft tissues: No joint effusion. No suspicious soft tissue calcifications. IMPRESSION: No acute fracture. No osseous lesion. If symptoms and/or clinical suspicion for patholog y continue, further assessment with repeat plain films, or advanced imaging (e.g., CT or bone scan) i s recommended for further assessment. Reviewed by: Norma Bradshaw MD on 10/23/2020 11:28 AM PDT Approved by: Norma Bradshaw MD on 10/23/2020 11:28 AM PDT Station ID: [id number]
--- NOTE | 2020-10-23 11:31 | XRAY Report ---
PROCEDURE: Shoulder 3 View RT INDICATIONS: fall shoulder pain TECHNIQUE: 3 views of the shoulder were acquired. COMPARISON: None. FINDINGS: Bones: No fractures or dislocations. No suspicious bony lesions. Visualized ribs appear intact. P eriarticular osteophyte formation at the acromioclavicular and glenohumeral joints. Superior subluxat ion of the humeral head. Soft tissues: No suspicious soft tissue calcifications. IMPRESSION: 1. Acromioclavicular and glenohumeral joint osteoarthritis 2. Findings suggestive of rotator cuff tearing. Further assessment with nonemergent outpatient follow -up shoulder MRI is recommended. Reviewed by: Norma Bradshaw MD on 10/23/2020 11:29 AM PDT Approved by: Norma Bradshaw MD on 10/23/2020 11:29 AM PDT Station ID: [id number]
[2020-10-23 11:37] LABS: ALBUMIN 4.5 g/dL (3.2-5.5); ALBUMIN/GLOBULIN RATIO 1.4 (1.0-2.2); BILIRUBIN,TOTAL 0.7 mg/dL (0.2-1.0); CREATININE 0.8 mg/dL (0.4-1.0); TOTAL PROTEIN 7.7 g/dL (6.7-8.2)
[2020-10-23 11:54] LABS: BILIRUBIN,URINE NEGATIVE (NEGATIVE); CLARITY,URINE CLEAR (CLEAR); GLUCOSE, URINE (UA) 100 mg/dL (NEGATIVE); KETONES,URINE (UA) NEGATIVE (NEGATIVE); LEUKOCYTE ESTERASE, URINE NEGATIVE (NEGATIVE); NITRITE,URINE NEGATIVE (NEGATIVE); OCCULT BLOOD,URINE NEGATIVE (NEGATIVE); PH,URINE 5.5 PH (5.0-7.5); PROTEIN,URINE 100 mg/dL (NEGATIVE); UROBILINOGEN,URINE 0.2 (NORMAL) E.U./dL (NORMAL)
[2020-10-23 12:15] LABS: BACTERIA,URINE Rare /HPF (None Seen); RBC,URINE None Seen /HPF (0-5); SQUAMOUS EPITHELIAL CELL,UR FEW Squamous (<= Few); WBC,URINE 0-3 /HPF (0-5)
--- NOTE | 2020-10-23 12:25 | CT Report ---
PROCEDURE: HEAD WO INDICATIONS: trauma, headache right sided impact TECHNIQUE: Noncontrast 4.5 mm thick angled axial sections acquired from the foramen magnum to the vertex. For r adiation dose reduction, the following was used: automated exposure control, adjustment of mA and/or kV according to patient size. COMPARISON: 04/27/2017 FINDINGS: Image quality: Excellent. CSF spaces: Basal cisterns are patent. No extra-axial fluid collections. The ventricles are symmet oscar in size and shape. Brain: No intracranial bleeds or masses.Chronic left frontal-parietal infarct is stable compared to 04/27/2017. There is cerebral volume loss for age, with resultant ventricular and sulcal prominence. There are periventricular and deep white matter chronic small vessel ischemic changes. There is intracranial internal carotid artery atherosclerosis. Skull and face: Calvarium and visualized facial bones appear intact, without suspicious lesions. Sinuses: Visualized sinuses and mastoids are clear. IMPRESSION: 1. No acute intracranial disease process. 2. Chronic left frontal-parietal infarct is stable compared to prior exam. Reviewed by: Kelsi Benedict MD, PhD on 10/23/2020 12:24 PM PDT Approved by: Kelsi Benedict MD, PhD on 10/23/2020 12:24 PM PDT Station ID: [id number]
--- NOTE | 2020-10-23 12:29 | CT Report ---
PROCEDURE: CERVICAL SPINE WO INDICATIONS: fall neck pain TECHNIQUE: Noncontrast 3 mm thick sections acquired from the skull base to the T4 level. Sagittal and coronal r eformats were then constructed. For radiation dose reduction, the following was used: automated exp osure control, adjustment of mA and/or kV according to patient size. COMPARISON: None. FINDINGS: Image quality: Excellent. Bones: No fractures or dislocations. Visualized superior ribs are intact. Spine degenerative disc d isease and facet arthropathy are noted. Soft tissues: Prevertebral soft tissues are normal in thickness. No paravertebral hematomas. No ap ical pneumothoraces. IMPRESSION: No fracture. No acute osseous lesion. If there is continued clinical concern for pathology, then MRI should be considered for further evaluation. Reviewed by: Kelsi Benedict MD, PhD on 10/23/2020 12:28 PM PDT Approved by: Kelsi Benedict MD, PhD on 10/23/2020 12:28 PM PDT Station ID: [id number]
[2020-10-23 13:09] VITALS: BP 189/99
== END 2020-10-23 13:27 | disposition home or self-care (01) ==
LOC: ED 09:18
DX: S06.0X0A Concussion without loss of consciousness, initial encounter (principal); S00.83XA Contusion of other part of head, initial encounter; S00.11XA Contusion of right eyelid and periocular area, initial encounter; S16.1XXA Strain of muscle, fascia and tendon at neck level, initial encounter; S43.401A Unspecified sprain of right shoulder joint, initial encounter; S83.91XA Sprain of unspecified site of right knee, initial encounter; W18.39XA Other fall on same level, initial encounter; Y92.000 Kitchen of unspecified non-institutional (private) residence as the place of occurrence of the external cause; R55 Syncope and collapse; E86.0 Dehydration; E87.1 Hypo-osmolality and hyponatremia; E11.9 Type 2 diabetes mellitus without complications; Z79.84 Long term (current) use of oral hypoglycemic drugs; I10 Essential (primary) hypertension; Z79.82 Long term (current) use of aspirin
CPT/HCPCS: 36415; 70450; 72125; 73030; 73562; 80053; 81001; 83690; 84484; 85025; 93005; 96361; 96374; 96375; 99284; J1170; 81003; 87086

== ENCOUNTER 2020-11-04 08:00 | Outpatient (CLI) | payer MEDICARE ==
[2020-11-04 11:53] LABS: CREATININE 0.9 mg/dL (0.4-1.0)
[2020-11-04 12:01] LABS: CALCIUM 9.8 mg/dL (8.5-10.3)
[2020-11-04 12:03] LABS: THYROID STIMULATING HORMONE 0.07 uIU/mL (0.34-5.60)
[2020-11-04 12:39] LABS: FREE T4 (FREE THYROXINE) 1.44 ng/dL (0.58-1.64)
== END 2020-11-04 23:59 | disposition home or self-care (01) ==
LOC: LAB.WCP 08:00
PROVIDERS: ATTEND Family Medicine
DX: E87.1 Hypo-osmolality and hyponatremia (principal); R55 Syncope and collapse
CPT/HCPCS: 36415; 80048; 84439; 84443

== ENCOUNTER 2021-07-02 07:58 | Outpatient (CLI) | payer MEDICARE ==
--- NOTE | 2021-07-03 08:26 | Mammography Report ---
BILATERAL DIGITAL SCREENING MAMMOGRAM 3D/2D: 07/02/2021 CLINICAL: Family history of breast cancer. Routine screening. Comparison is made to exams dated: 01/10/2020 mammogram, 01/17/2019 mammogram, 12/27/2018 mammogram, mammogram, 09/20/2016 mammogram, and 09/29/2015 mammogram - [facility]. The tissue of both breasts is heterogeneously dense. This may lower the sensitivity of mammography. There are benign calcifications in the right breast. There also are benign post operative findings i n the right breast. No significant masses, calcifications, or other findings are seen in either breast. There has been no significant interval change. IMPRESSION: BENIGN There is no mammographic evidence of malignancy. A 1 year screening mammogram is recommended. This exam was interpreted at Station ID: [id number]. NOTE: For mammograms, a report in lay terms will be sent to the patient. Approximately 15% of breast malignancies will not be visualized mammographically. In the management of a palpable breast mass, a negative mammogram must not discourage biopsy of a clinically suspicious lesion. Electronically Signed By: Drea rodriguez/iris:07/02/2021 10:13:57 ACR BI-RADS Category 2: Benign Finding(s) 3342F PARENCHYMAL PATTERN: (D) - The breast(s) demonstrate(s) heterogeneously dense fibroglandular graciela rodriguez. BI-RADS CATEGORY: (2) - 2 RECOMMENDATION: (ANNUAL) - Recommend routine annual screening mammography. [id number] 1 year screening LATERALITY: (B)
== END 2021-07-02 07:59 | disposition home or self-care (01) ==
LOC: DI.N 07:58
DX: Z12.31 Encounter for screening mammogram for malignant neoplasm of breast (principal); Z80.3 Family history of malignant neoplasm of breast

== ENCOUNTER 2022-10-13 14:33 | Emergency (ER) | payer MEDICARE ==
--- NOTE | 2022-10-13 14:46 | ED Physician Documentation ---
History of Present Illness - Stated complaint Stated Complaint: DIZZINESS,GEN WEAKNESS - Chief complaint Chief Complaint: Neuro - Additonal information Additional information: Patient 66-year-old female presenting to the emergency department with Nausea, dizziness, generalized weakness. Past medical significant for diabetes,, Hypertension with recent hospitalization [facility] 07/15/2022 to 07/17/2022 for hypertensive urgency. At that time was started on hydralazine and lisinopril to help with her blood pressure. Other medications include daily aspirin, glimepiride hydralazine, lisinopril, metformin, simvastatin, metoprolol.Reports symptoms of been ongoing for several days. Has not followed up with primary care. Reports heart palpitations but denies chest pain. Review of Systems Constitutional: denies: Fever Eyes: denies: Loss of vision Ears: denies: Loss of hearing Nose: denies: Rhinorrhea / runny nose Throat: denies: Dental pain / toothache Cardiac: reports: Palpitations GI: reports: Nausea. denies: Abdominal Pain, Abdominal Swelling, Constipation, Diarrhea : denies: Dysuria PD PAST MEDICAL HISTORY - Past Medical History Cardiovascular: Hypertension, High cholesterol Respiratory: None, Shortness of breath Endocrine/Autoimmune: Type 2 diabetes GI: Other : Other HEENT: None Psych: None Musculoskeletal: Osteoarthritis, Osteoporosis Derm: Eczema, Psoriasis - Past Surgical History Past Surgical History: Yes Ortho: Knee replacement /[employer]: Hysterectomy - Present Medications Home Medications: Ambulatory Orders Medication Instructions Recorded Confirmed Aspirin [Adult Low Dose Aspirin EC] 81 mg PO DAILY 07/14/15 04/27/17 Metoprolol Tartrate 50 mg PO BID 07/14/15 04/27/17 Simvastatin 40 mg PO QPM 07/14/15 04/27/17 methIMAzole [Methimazole] 5 mg PO DAILY 07/14/15 04/27/17 Bisacodyl Supp [Dulcolax Supp] 10 mg LA Q12H PRN #7 supp 07/02/16 04/27/17 lisinopriL [Prinivil] 10 mg PO DAILY #30 tablet 04/27/17 metFORMIN [Glucophage] 1,000 mg PO BID 04/27/17 04/27/17 Metoclopramide [Reglan] 10 mg PO Q6H PRN #20 tablet 10/13/22 - Allergies Allergies/Adverse Reactions: Allergies Allergy/AdvReac Type Severity Reaction Status Date / Time No Known Drug Allergies Allergy Verified 10/13/22 14:44 - Social History Does the pt smoke?: No Smoking Status: Never smoker Does the pt drink ETOH?: No Does the pt have substance abuse?: No PD ED PE NORMAL - General General: Alert and oriented X 3, No acute distress, Well developed/nourished - HEENT HEENT: Atraumatic, PERRL, EOMI, Ears normal, Moist mucous membranes, Pharynx benign - Neck Neck: Supple, no meningeal sign, No bony TTP, No adenopathy, Thyroid normal, No JVD, No bruit, C-Spine cleared by NEXUS criteria - Cardiac Cardiac: RRR, No murmur, No gallop, No rub, Strong equal pulses - Respiratory Respiratory: No respiratory distress, Clear bilaterally - Abdomen Abdomen: Normal bowel sounds, Non tender - Female Female : Deferred - Rectal Rectal: Deferred - Back Back: No CVA TTP - Derm Derm: Normal color - Extremities Extremities: No deformity - Neuro Neuro: Alert and oriented X 3, healthcare management 2-12 intact, No motor deficit, No sensory deficit, Normal speech Results - Vitals Vitals: Oxygen O2 Source Room air - EKG (time done) 1457 EKG releavant findings:: EKG personally interpreted by author of this note. Relevant findings are: Sinus rhythm with rate 72 bpm. Normal axis. Normal LA, QRS, QTc intervals. Ventricular trigeminy noted. No ST segment elevations or T wave inversions. - Labs Labs: Laboratory Tests 10/13/22 10/13/22 15:06 15:06 WBC 10.2 RBC 4.54 Hgb 11.6 L Hct 37.3 MCV 82.2 MCH 25.6 L MCHC 31.1 L RDW 13.5 Plt Count 325 MPV 9.2 Neut # (Auto) 5.8 Lymph # (Auto) 3.2 Gila # (Auto) 0.7 Eos # (Auto) 0.5 Baso # (Auto) 0.1 Absolute Nucleated RBC 0.00 Nucleated RBC % 0.0 Sodium 135 Potassium 4.8 Chloride 101 Carbon Dioxide 25 Anion Gap 9.0 BUN 26 H Creatinine 1.3 H Estimated GFR (MDRD) 41 L Glucose 141 H Calcium 9.5 Total Bilirubin 0.4 AST 21 ALT 21 Alkaline Phosphatase 66 Total Protein 7.8 Albumin 4.0 Globulin 3.8 Albumin/Globulin Ratio 1.1 Lipase 93 H PD Medical Decision Making - ED course Complexity details: reviewed old records, reviewed results, re-evaluated patient, considered differential, d/w patient ED course: Patient 66-year-old female presenting to the emergency department with fatigue and dizziness. Afebrile, medically stable to arrival to the emergency department. Initial EKG demonstrated a trigeminy pattern however this resolved on telemetry shortly after arrival to the emergency department. Telemetry demonstrated a normal sinus rhythm at an appropriate rate while in the emergency department. Labs obtained demonstrated a mild prerenal azotemia and she was given IV hydration as well as medication for nausea. The remainder of her tests and imaging were all within normal limits or nonactionable. She tolerated a p.o. trial while in the emergency department without difficulty. At this time will discharge on some medication for nausea and encourage careful follow-up with primary care. Clear return precautions given prior to discharge. Departure - Departure Disposition: 01 Home, Self Care Clinical Impression: Dehydration, Ventricular trigeminy Prescriptions: Metoclopramide [Reglan] 10 mg PO Q6H PRN #20 tablet PRN Reason: Nausea / Vomiting Comments: Thank you for allowing us to care for you today at [facility]. Today in the emergency department you were evaluated for any possible life- threatening medical emergency. Overall your testing here in the emergency department is reassuring. Your initial EKG did show frequent Premature ventricular complexes in a pattern known as trigeminy however this is not continued on your stay in the emergency department and appears to have resolved at this time. You also had some indications of dehydration and you are given IV hydration. Is very reassuring that you are feeling better and able to tolerate fluids at this time. I have written a prescription for some medication for ongoing nausea which was sent to your preferred pharmacy, [facility] in [place]. It is very important that you get plenty of rest and drink plenty of fluids over the course of the next few days. I also like you to follow-up Closely with your primary care doctor, please contact them either this afternoon or first thing tomorrow to arrange for a follow-up appointment. If it anytime you have any new or worsening symptoms Please return to the emergency department. Discharge Date/Time: 10/13/22 16:10
[2022-10-13] MEDS ORDERED: METOCLOPRAMIDE 10 MG/2 ML VIAL IVP STA (15:01)
[2022-10-13 15:11] LABS: BASOPHILS # (AUTO) 0.1 10^3/uL (0.0-0.1); BASOPHILS % (AUTO) 0.5 %; EOSINOPHILS # (AUTO) 0.5 10^3/uL (0.0-0.7); EOSINOPHILS % (AUTO) 4.5 %; HCT - HEMATOCRIT 37.3 % (37.0-47.0); HGB - HEMOGLOBIN 11.6 g/dL (12.0-16.0); LYMPHOCYTES # (AUTO) 3.2 10^3/uL (1.5-3.5); LYMPHOCYTES % (AUTO) 31.1 %; MEAN CORPUSCULAR HEMOGLOBIN 25.6 pg (27.0-31.0); MEAN CORPUSCULAR HGB CONC 31.1 g/dL (32.0-36.0); MEAN CORPUSCULAR VOLUME 82.2 fL (81.0-99.0); MEAN PLATELET VOLUME 9.2 fL (7.9-10.8); MONOCYTES # (AUTO) 0.7 10^3/uL (0.0-1.0); MONOCYTES % (AUTO) 7.1 %; NEUTROPHILS # (AUTO) 5.8 10^3/uL (1.5-6.6); NEUTROPHILS % (AUTO) 56.5 %; PLT - PLATELET COUNT 325 10^3/uL (130-450); RED BLOOD COUNT 4.54 10^6/uL (4.20-5.40); RED CELL DISTRIBUTION WIDTH 13.5 % (12.0-15.0); WHITE BLOOD COUNT 10.2 x10^3/uL (4.8-10.8)
[2022-10-13 15:23] LABS: ALBUMIN/GLOBULIN RATIO 1.1 (1.0-2.2); BILIRUBIN,TOTAL 0.4 mg/dL (0.2-1.0); CALCIUM 9.5 mg/dL (8.5-10.3); CREATININE 1.3 mg/dL (0.4-1.0); POTASSIUM 4.8 mmol/L (3.5-5.0); TOTAL PROTEIN 7.8 g/dL (6.7-8.2)
[2022-10-13 16:08] VITALS: BP 123/66
== END 2022-10-13 16:10 | disposition home or self-care (01) ==
LOC: ED 14:33
DX: R00.8 Other abnormalities of heart beat (principal); E86.0 Dehydration
CPT/HCPCS: 36415; 80053; 83690; 85025; 93005; 96374; 99284; J2765

== ENCOUNTER 2022-10-14 15:44 | Outpatient (CLI) | payer MEDICARE ==
--- NOTE | 2022-10-15 09:41 | Mammography Report ---
BILATERAL DIGITAL SCREENING MAMMOGRAM 3D/2D: 10/14/2022 CLINICAL: Family history of breast cancer. Routine screening. Comparison is made to exams dated: 07/02/2021 mammogram, 01/10/2020 mammogram, 01/17/2019 mammogram, mammogram, 09/23/2017 mammogram, and 09/20/2016 mammogram - [facility]. Both breasts are heterogeneously dense, which may obscure small masses (category c / 51-75% glandular tissue). There are benign calcifications in the right breast. There also are benign post operative findings i n the right breast. No significant masses, calcifications, or other findings are seen in either breast. There has been no significant interval change. IMPRESSION: BENIGN There is no mammographic evidence of malignancy. A 1 year screening mammogram is recommended. Based on the Tyrer Cuzick model (a risk assessment model) the patients lifetime risk is 19.7% and he r 10 year risk is 9.8%. According to the ACR, ACS, and NCCN guidelines, an annual breast MRI exam missy ng with mammogram is recommended if the patients lifetime risk is 20% or greater. This exam was interpreted at Station ID: [id number]. NOTE: For mammograms, a report in lay terms will be sent to the patient. Approximately 15% of breast malignancies will not be visualized mammographically. In the management of a palpable breast mass, a negative mammogram must not discourage biopsy of a clinically suspicious lesion. Electronically Signed By: José Luis Sheppard M.D. atcristi/iris:10/14/2022 17:19:11 letter sent: No_Letter ACR BI-RADS Category 2: Benign Finding(s) 3342F PARENCHYMAL PATTERN: (D) - The breast(s) demonstrate(s) heterogeneously dense fibroglandular paranthony ma. BI-RADS CATEGORY: (2) - 2 Mammogram [id number] 1 year screening LATERALITY: (B)
== END 2022-10-14 15:45 | disposition home or self-care (01) ==
LOC: DI.N 15:44
DX: Z12.31 Encounter for screening mammogram for malignant neoplasm of breast (principal); Z80.3 Family history of malignant neoplasm of breast